=== PATIENT | male | born 1995 | race Caucasian/White ===

== ENCOUNTER → 2020-11-27 06:47 | Outpatient (CLI) | payer OTHER, SELFPAY ==
[2020-04-19 09:18] VITALS: BMI 26.6
--- NOTE | 2020-11-27 06:53 | CT_ITS ---
STUDY: CT MAXILLOFACIAL SINUSES REASON FOR EXAM: Male, 25 years old. SINUSITIS NASAL POLYPS. Anosmia RADIATION DOSAGE (If Supplied By Facility): CTDIvol = ( 33.06 ) mGy, DLP = ( 850.38 ) mGycm TECHNIQUE: The patient was scanned in a multi detector CT scanner. High resolution axial imaging was performed without the administration of intravenous contrast material. Sagittal and coronal images were reconstructed. Individualized dose optimization techniques were used for this CT. COMPARISON: None. FINDINGS: FRONTAL SINUSES: Opacification of the frontal sinus. ETHMOIDAL SINUSES: Opacification of the ethmoid sinuses bilaterally worse on the right side. MAXILLARY SINUSES: There is opacification of the maxillary sinuses bilaterally. SPHENOIDAL SINUSES: Opacification of the sphenoid sinus. The maxillary infundibula are compromised due to the mucosal hypertrophy. Soft tissue density is seen within the nasal fossa bilaterally worse on the left side suggestive of polyposis. This extends into the nasopharynx posteriorly on the left. There is thinning of the bony septations within the ethmoid sinuses bilaterally. The visualized bilateral orbital contents are normal. CT/Sinus/Facial Bone IMPRESSION: Pansinusitis. Nasal polyposis is worse in the left nasal fossa. Electronically Signed: Yinka Larson MD at 9:32 EDT , Service support ,
== END ==
PROVIDERS: PCP Family Medicine; Referring Provider Otolaryngology; Visit Provider Otolaryngology
DX: J32.4 Chronic pansinusitis (principal); J33.9 Nasal polyp, unspecified
CPT/HCPCS: 70486

== ENCOUNTER 2021-01-27 08:30 | Day surgery (SDC) | payer OTHER, SELFPAY ==
[2020-04-19 09:18] VITALS: BMI 26.6
[2021-01-26 10:05] LABS: Anion Gap 7 (5-15); BUN 10 mg/dL (7-18); BUN/Creat Ratio 11.3 RATIO (10-20); Calcium,Total 8.9 mg/dL (8.5-10.1); Chloride 105 mmol/L (98-107); Creatinine, Serum 0.88 mg/dL (0.70-1.30); EST Glomerular Filtration Rate 110 mL/min (>60); Est Glom Filt Rate - Afr Amer 133 mL/min (>60); Glucose 65 mg/dL (74-106); Potassium 3.6 mmol/L (3.5-5.1); Sodium Level 140 mmol/L (136-145)
[2021-01-27 09:24] VITALS: BP 135/91; PULSE 65; RESP 16; TEMP 36.7; O2SAT 98; BMI 27.0
[2021-01-27] MEDS: Lactated Ringers 1,000 ML 100 ML IV (09:28)
--- NOTE | 2021-01-27 10:00 | NASAL_PTH ---
PATIENT: WALE GARVEY LOC: [facility] – [place] U#:[id number] AGE/SX: 25/M ROOM: RE01/27/[address]: Dr. Reji Mcknight MD : 1995 BED: DIS: 01/27/2021 SPEC #: [id number] RECD: 01/27/21 14:57 STATUS: KALEIGH REWilian #: [id number] PIO: 01/27/21 10:[address]: Reji Mcknight DEPT: SURGICAL PATHOLOGY RECD BY: Jyotsna Gaines ENTERED: 01/28/21 11:43 SP TYPE: NASAL SPEC OTHR DR: Dr. Nesha Ahn MD Tissues: A - Ethmoid sinus, NOS B - Ethmoid sinus, NOS Procedures: Decalcification bone/plaque Special Stain Group I Surgery Specimen Level III GMS Stain (control) HEADER OPERATION: Functional endoscopic sinus surgery, septoplasty PRE-OP DIAGNOSIS: Nasal congestion, acute recurrent pansinusitis, polyp of nasal cavity TISSUE SUBMITTED: A ? Left sinus contents, B ? Right sinus contents MICROSCOPIC DIAGNOSIS A. Left sinus contents, curettings: Polypoid fragments consistent with chronic sinusitis. Fibrinopurulent material. Fragments of bone with no pathologic change. Negative for fungal organisms. B. Right sinus contents, curettings: Polypoid fragments consistent with chronic sinusitis. Fibrinopurulent material. Fragments of bone with no pathologic change. Negative for fungal organisms. AM:shine 02/02/2021 COMMENT A & B. GMS stain with matched control was used in the evaluation of this case. MICROSCOPIC DESCRIPTION Slides are reviewed. GROSS DESCRIPTION A - Received in fixative is one container labeled with the patient's name and designated left sinus contents. The specimen consists of three variable sized polypoid pieces of corona soft tissue that in aggregate measure 4 x 3 x 2 cm. Also present in the container are multiple fragments of hemorrhagic soft tissue mixed with fragments of bone measuring in aggregate 7.5 x 3 x 0.3 cm. The polypoid pieces are serially sectioned. The entire specimen is submitted in six cassettes, 1-3 contains the polypoid fragment, 4-6 contains the hemorrhagic fragments mixed with mucoid tissue. Cassettes 4-6 are submitted after decalcification. B - Received in fixative is one container labeled with the patient's name and designated right sinus contents. The specimen consists of multiple irregular fragments of corona-pink polypoid tissue that in aggregate measure 4 x 4 x 2 cm. Also present in the container are multiple fragments of hemorrhagic soft tissue mixed with fragments of bone measuring in aggregate 4.5 x 5 x 1.5 cm. [place] tissue is submitted in six cassettes as follows: 1-4 ? polypoid tissue, 5 & 6 - hemorrhagic soft tissue mixed with fragments of bone. Polypoid tissue is submitted in entirety. Cassettes 5 & 6 are submitted after decalcification. / LIBIA:shine 01/28/21 TC:2 CPT: 52223 x2, 36946 x2, 84276 x2
--- NOTE | 2021-01-27 10:18 | PCM.DC ---
Discharge Instructions Diet Discharge Diet: No restrictions Activity Discharge Activity: Return to Normal Activity Dressing / Incision Call your doctor if your incision/area has: Sudden Increased Bleeding Additional Dressing/Incision Instructions:: sleep with head of bed elevated 30 degrees. saline to both nostrils 5 times daily. mupirocin ointment to both nostrils twice daily. Follow Up Care Please Follow Up With: Ryan Mcknight MD When: 1 week Test Results: Test results from this visit will be discussed in further detail at your follow-up appointment, if applicable. Discharge Plan Admission Attending Provider: Ryan Mcknight Primary Care Provider: Nesha Ahn Discharge Orders/Prescriptions Prescriptions: No Action albuterol sulfate 90 mcg/actuation HFA aerosol inhaler 2 puff INHALATION Q6H PRN (Reason: shortness of breath or wheezing) Qty: 6.7 RF: 0 prednisone 20 mg tablet 60 mg PO DAILY RF: 0 bxlsifiy-wplevfbzjci-oapeyzehn 500-500-30 mg Combo Pack 1 pkg PO BID RF: 0 Dulera 200-5 mcg/actuation HFA aerosol inhaler 2 puff inhalation BID RF: 0 Xhance 93 mcg/actuation Aerosol Breath Activated 1 spray INTRANASAL BID RF: 0 Disposition Discharge Orders: Discharge Patient (Routine); Ordered 01/27/21 Ordered By: Dr. Ryan Mcknight
--- NOTE | 2021-01-27 10:22 | PCM.OPRPT ---
Problems Associated Problem List Diagnoses (1) Chronic pansinusitis: (2) Polyp, nasal sinus: (3) Nasal septal deviation: (4) Nasal turbinate hypertrophy: Report of Operation Date of Procedure: 01/27/21 Pre-Operative Diagnosis: 1. chronic pansinusitis 2. sinonasal polyposis 3. deviated nasal septum 4. inferior turbinate hypertrophy, right and left Post-Operative Diagnosis: 1. chronic pansinusitis 2. sinonasal polyposis 3. deviated nasal septum 4. inferior turbinate hypertrophy, right and left Surgery/Procedure Performed:: 1. endoscopic maxillary antrostomy with removal of contents, right and left 2. endoscopic total ethmoidectomy with removal of contents, right and left 3. endoscopic sphenoidotomy with removal of contents, right and left 4. endoscopic frontal sinus exploration with removal of contents, right and left 5. septoplasty 6. submucous resection inferior turbinates 7. image guidance CT navigation Surgeon: Ryan Mcknight Type of Anesthesia: General Description of Procedure: On the day of the procedure, after appropriate informed consent was obtained, the patient was brought to the operating room and placed in a supine position on the operating room table. The patient was placed under general endotracheal anesthesia by the anesthesiologist. The endotracheal tube was secured. image guidance navigation was set up on the face and accuracy was confirmed. the nose was injected with lidocaine/epinephrine and decongested with oxymetazoline-soaked pledgets. a marginal incision was made with a #15 blade on the left side. a submucoperichondrial plane was developed on the patient's left side with a royer elevator. this was taken posteriorly to the bony/cartilaginous junction and inferiorly to the maxillary crest. after an L-strut was marked, a large leftward defection and bony spur were removed with a D-knife and elias pedersen. the head of the right and left turbinates were injected with lidocaine/epinephrine. the head of the left inferior turbinate was incised with a 15 blade, dissected submucosally with a royer elevator, reduced using suction electrocautery and outfractured using a boies elevator. the head of the right inferior turbinate was incised with a 15 blade, dissected submucosally with a royer elevator, reduced using suction electrocautery and outfractured using a boies elevator. the zero degree endoscope was used to evaluate the nasal cavity. the superior attachment of the right and left middle turbinate and uncinate processes were injected with lidocaine/epinephrine. the left nasal cavity was evaluated. the middle turbinate was medialized. extensive polyps were removed from the middle meatus, sphenoethmoidal recess and frontal recess. a maxillary antrostomy and uncinectomy were performed with a royer elevator and a jabari cut. the antrostomy was widened with a back-biter. purulent material was evacuated. the ethmoid bulla was entered bluntly with the suction. a total ethmoidectomy was performed with a curette and an upgoing blakesley. this was taken superiorly to the skull base and laterally to the lamina. a stankewicz maneuver was performed and no laminar defect was noted. the natural sphenoid os was widened with the microdebrider and contents were evacuated. fungus was removed from the sphenoethmoidal recess. the frontal recess was explored and contents were evacuated. hemostasis was achieved with suction cautery; travis was placed. the right nasal cavity was evaluated. the middle turbinate was medialized. extensive polyps were removed from the middle meatus, sphenoethmoidal recess and frontal recess. a maxillary antrostomy and uncinectomy were performed with a royer elevator and a jabari cut. the antrostomy was widened with a back-biter. purulent material was evacuated. the ethmoid bulla was entered bluntly with the suction. a total ethmoidectomy was performed with a curette and an upgoing blakesley. this was taken superiorly to the skull base and laterally to the lamina. a stankewicz maneuver was performed and no laminar defect was noted. the natural sphenoid os was widened with the microdebrider and contents were evacuated. fungus was removed from the sphenoethmoidal recess. the frontal recess was explored and contents were evacuated. hemostasis was achieved with suction cautery; travis was placed. patton splints were sutured into place. a nasogastric tube was inserted orally and contents were evacuated. the table was rotated 90 degrees toward the anesthesiologist and was subsequently extubated uneventfully. he was transferred to the PACU in stable condition.
[2021-01-27] MEDS: Lidocaine 1% /Epi 1:100 (20ml) 20 ML Vial (10:52)
[2021-01-27] MEDS: Oxymetazoline 0.05% 1 SPRAY SPRAY.BTL 15 SPRAY (10:52)
[2021-01-27] MEDS: Mupirocin Ointment 22gm Tube 1 APPLIC (12:02)
[2021-01-27 13:09] VITALS: BP 135/91; BP 146/92; PULSE 79; RESP 18; TEMP 36.2; O2SAT 96
[2021-01-27 13:15] VITALS: BP 135/91; BP 154/92; PULSE 73; RESP 18; O2SAT 98
[2021-01-27 13:30] VITALS: BP 135/91; BP 147/86; PULSE 70; RESP 16; O2SAT 98
[2021-01-27 13:43] VITALS: BP 135/91; BP 144/86; PULSE 69; RESP 18; TEMP 36.2; O2SAT 97
[2021-01-27] MEDS: HYDROcodone Bitartrate/Apap 5/325 Tablet PO (14:04)
[2021-01-27 15:17] VITALS: BP 135/91; BP 145/83; PULSE 66; RESP 16; TEMP 37; O2SAT 100
== END 2021-01-27 15:25 | disposition home or self-care (01) ==
LOC: SDC 08:31 → AC 08:32
PROVIDERS: Anesthesiology; PCP Family Medicine; Referring Provider Otolaryngology; Visit Provider Otolaryngology
PROC: (CPT 30140; principal; 2021-01-27 09:30)
DX: J01.41 Acute recurrent pansinusitis (principal); J32.4 Chronic pansinusitis; J33.8 Other polyp of sinus; J34.2 Deviated nasal septum; J34.3 Hypertrophy of nasal turbinates; Z20.822 Contact with and (suspected) exposure to COVID-19
CPT/HCPCS: 00160; 30140; 30520; 31259; 31267; 31276; 61782; 36415; 80048; 87426; 88304; 88305; 88311; 88312; C9803; J7120; J2405

== ENCOUNTER → 2021-09-10 | Outpatient (CLI) | payer OTHER, SELFPAY ==
--- NOTE | 2021-09-10 07:55 | CT_ITS ---
STUDY: CT MAXILLOFACIAL SINUSES REASON FOR EXAM: Male, 26 years old. Sinusitis, polyp OF NASAL CAVITY RADIATION DOSAGE (If Supplied By Facility): CTDIvol = ( 33.06 ) mGy, DLP = ( 804.92 ) mGycm TECHNIQUE: The patient was scanned in a multi detector CT scanner. High resolution axial imaging was performed without the administration of intravenous contrast material. Sagittal and coronal images were reconstructed. Individualized dose optimization techniques were used for this CT. COMPARISON: Comparison is made with prior study dated 11/27/2020. FINDINGS: FRONTAL SINUSES: Diffuse opacification of the frontal sinuses. ETHMOIDAL SINUSES: Diffuse opacification of the ethmoid sinuses bilaterally with thickening of the bony septations. Mild degree of improvement. MAXILLARY SINUSES: Diffuse opacification of the maxillary sinuses bilaterally. SPHENOIDAL SINUSES: Almost complete opacification of the sphenoid sinuses. The ostiomeatal complexes are obliterated due to mucosal hypertrophy and soft tissue proliferation. Normal bilateral middle turbinates. Normal bilateral inferior turbinates. Normal midline nasal septum. The nasal cavities have improved aeration as compared to prior study. The visualized osseous structures are normal. The visualized bilateral orbital contents are normal. CT/Sinus/Facial Bone IMPRESSION: Pansinusitis. Mild degree of improved aeration of the ethmoid sinuses. Improved aeration of the nasal soft tissue swelling. Electronically Signed: Yinka Larson MD at 9:44 EDT ,
== END | disposition home or self-care (01) ==
LOC: CT 07:54
PROVIDERS: PCP Family Medicine; Referring Provider Otolaryngology; Visit Provider Otolaryngology
DX: J32.9 Chronic sinusitis, unspecified (principal); J33.0 Polyp of nasal cavity
CPT/HCPCS: 70486

== ENCOUNTER 2021-09-22 13:02 | Day surgery (SDC) | payer OTHER, SELFPAY ==
[2021-09-22 13:51] VITALS: BP 142/83; PULSE 58; RESP 16; TEMP 36.9; O2SAT 100; BMI 27.5
[2021-09-22] MEDS: Lactated Ringers 1,000 ML 15 ML IV (13:56)
--- NOTE | 2021-09-22 14:20 | PCM.DC ---
Discharge Instructions Diet Discharge Diet: No restrictions Activity Discharge Activity: Return to Normal Activity Dressing / Incision Call your doctor if your incision/area has: Sudden Increased Bleeding Additional Dressing/Incision Instructions:: irrigate nose 4-5 times daily Follow Up Care Please Follow Up With: Ryan Mcknight MD When: 1 week Test Results: Test results from this visit will be discussed in further detail at your follow-up appointment, if applicable. Discharge Plan Admission Attending Provider: Ryan Mcknight Primary Care Provider: Nesha Ahn Discharge Orders/Prescriptions Prescriptions: No Action albuterol sulfate 90 mcg/actuation HFA aerosol inhaler 2 puff INHALATION Q6H PRN (Reason: shortness of breath or wheezing) Qty: 6.7 RF: 0 Xhance 93 mcg/actuation Aerosol Breath Activated 1 spray INTRANASAL BID RF: 0 montelukast [Singulair] 10 mg Tablet 10 mg PO DAILY RF: 0 Trelegy Ellipta 100-62.5-25 mcg Blister With Device 1 inh INHALATION DAILY RF: 0 Disposition Discharge Orders: Discharge Patient (Routine); Ordered 09/22/21 Ordered By: Dr. Ryan Mcknight
--- NOTE | 2021-09-22 14:22 | PCM.OPRPT ---
Problems Associated Problem List Diagnoses (1) Chronic pansinusitis: (2) Polyp, nasal sinus: Report of Operation Date of Procedure: 09/22/21 Pre-Operative Diagnosis: 1. chronic pansinusitis 2. sinonasal polyposis Post-Operative Diagnosis: 1. chronic pansinusitis 2. sinonasal polyposis Surgery/Procedure Performed:: 1. endoscopic maxillary antrostomy with removal of contents, right and left 2. endoscopic total ethmoidecotmy, right and left 3. endoscopic sphenoidotomy with removal of contents, right and left 4. endoscopic frontal sinus exploration removal of contents, right and left 5. removal extensive sinonasal polyps 6. CT image navigation Surgeon: Ryan Mcknight Type of Anesthesia: General Description of Procedure: On the day of the procedure, after appropriate informed consent was obtained, the patient was brought to the operating room and placed in a supine position on the operating room table. The patient was placed under general endotracheal anesthesia by the anesthesiologist. The endotracheal tube was secured. image guidance navigation was set up on the face and accuracy was confirmed. the nose was injected with lidocaine/epinephrine and decongested with oxymetazoline-soaked pledgets. the left nasal cavity was evaluatedwith the zero degree endoscope. the middle turbinate was medialized. extensive polyps were removed from the middle meatus / ethmoid chamber. a revision maxillary antrostomy and uncinectomy were performed with a royer elevator and a jabari cut. the antrostomy was widened with a back-biter. purulent material and polyps were evacuated. a revision ethmoidectomy was performed with a curette and an upgoing blakesley. polyps were removed from this area with the microdebrider. this was taken superiorly to the skull base and laterally to the lamina. a stankewicz maneuver was performed and no laminar defect was noted. the natural sphenoid os was widened with the microdebrider and contents were evacuated. fungus was removed from the sphenoethmoidal recess, however some firm ethmoid bone was left intact as it was attached to the skull base. the frontal recess was explored with a seeker and the microdebrider and polyps were evacuated. the natural sphenoid os was widened and a revision sphenoidotomy was performed with the microdebrider. polyps were removed from the sphenoid sinus. hemostasis was achieved with suction cautery; travis was placed. the left nasal cavity was evaluated with the zero degree endoscope. the middle turbinate was medialized. extensive polyps were removed from the middle meatus / ethmoid chamber. a revision maxillary antrostomy and uncinectomy were performed with a royer elevator and a jabari cut. the antrostomy was widened with a back-biter. purulent material and polyps were evacuated. a revision ethmoidectomy was performed with a curette and an upgoing blakesley. polyps were removed from this area with the microdebrider. this was taken superiorly to the skull base and laterally to the lamina. a stankewicz maneuver was performed and no laminar defect was noted. the natural sphenoid os was widened with the microdebrider and contents were evacuated. fungus was removed from the sphenoethmoidal recess, however some firm ethmoid bone was left intact as it was attached to the skull base. the frontal recess was explored with a seeker and the microdebrider and polyps were evacuated. the natural sphenoid os was widened and a revision sphenoidotomy was performed with the microdebrider. polyps were removed from the sphenoid sinus. hemostasis was achieved with suction cautery; travis was placed. a nasogastric tube was inserted orally and contents were evacuated. the table was rotated 90 degrees toward the anesthesiologist and was subsequently extubated uneventfully. he was transferred to the PACU in stable condition.
--- NOTE | 2021-09-22 14:30 | TUR_PTH ---
PATIENT: WALE GARVEY LOC: [facility] – [place], [place] U#:[id number] AGE/SX: 26/M ROOM: RE09/22/[address]: Dr. Reji Mcknight MD : 1995 BED: DIS: 09/22/2021 SPEC #: [id number] RECD: 09/23/21 08:10 STATUS: KALEIGH REWilian #: [id number] PIO: 09/22/21 14:[address]: Reji Mcknight DEPT: SURGICAL PATHOLOGY RECD BY: Gopi Chaudhary ENTERED: 09/23/21 10:00 SP TYPE: TURBINATES OTHR DR: Dr. Nesha Ahn MD Tissues: A - Nasal turbinate, NOS B - Nasal turbinate, NOS Procedures: Decalcification bone/plaque Special Stain Group I Surgery Specimen Level III GMS Stain (control) HEADER OPERATION: Revision functional endoscopic sinus surgery, Navigation PRE-OP DIAGNOSIS: Chronic pansinusitis, sinonasal polyposis TISSUE SUBMITTED: A ? Right nasal contents, B ? Left nasal contents MICROSCOPIC DIAGNOSIS A. Right nasal contents, curettings: Polypoid fragments of respiratory mucosa and submucosal acute and chronic inflammation. See comment. B. Left nasal contents, curettings: Polypoid fragments of respiratory and submucosal tissue with chronic inflammation. Bone with focal reparative and reactive changes. AM:shine 09/28/2021 COMMENT A. GMS stain with matched control was used in the evaluation of this case and is negative for fungal organisms. MICROSCOPIC DESCRIPTION Slides are reviewed. GROSS DESCRIPTION A - Received in fixative is one container labeled with the patient's name and designated right nasal contents. The specimen consists of multiple irregular fragments of corona soft tissue mixed with possible fragments of bone that in aggregate measure 1 x 0.5 x 0.1 cm. The specimen is totally submitted in one cassette after decalcification. B - Received in fixative is one container labeled with the patient's name and designated left nasal contents. The specimen consists of multiple irregular fragments of corona soft tissue mixed with fragments of bone that in aggregate measure 2 x 1.5 x 0.2 cm. The specimen is totally submitted in one cassette after decalcification. / LIBIA:shine 09/23/2021 TC:2 CPT: 75541 x2, 10034 x2, 85074
[2021-09-22] MEDS: Clindamycin 900 MG/50 ML BAG 75 MG IV (14:53)
[2021-09-22] MEDS: Lidocaine 1% /Epi 1:100 (20ml) 20 ML Vial (14:58)
[2021-09-22] MEDS: Oxymetazoline 0.05% 1 SPRAY SPRAY.BTL 15 SPRAY (15:00)
[2021-09-22 16:06] VITALS: BP 142/83; BP 152/96; PULSE 82; RESP 16; TEMP 37; O2SAT 97
[2021-09-22 16:15] VITALS: BP 142/83; BP 148/95; PULSE 70; RESP 16; O2SAT 99
[2021-09-22 16:30] VITALS: BP 142/83; BP 142/88; PULSE 66; RESP 16; O2SAT 99
[2021-09-22 16:47] VITALS: BP 142/83; BP 146/98; PULSE 63; RESP 16; TEMP 36.6; O2SAT 97
[2021-09-22 16:55] VITALS: BP 142/83; BP 148/92; PULSE 58; RESP 16; TEMP 36.6; O2SAT 98
== END 2021-09-22 17:16 | disposition home or self-care (01) ==
LOC: SDC 13:03 → AC 13:11
PROVIDERS: PCP Family Medicine; Referring Provider Otolaryngology; Visit Provider Otolaryngology
PROC: (CPT 31267; principal; 2021-09-22 14:00)
DX: J32.4 Chronic pansinusitis (principal); J33.0 Polyp of nasal cavity; Z20.822 Contact with and (suspected) exposure to COVID-19; J45.909 Unspecified asthma, uncomplicated
CPT/HCPCS: 31267; 31288; 31276; 87426; 88304; 88311; 88312; J7120; J2405

== ENCOUNTER → 2022-02-18 | Outpatient (CLI) | payer OTHER, SELFPAY | END | disposition home or self-care (01) | LOC: LABSPEC 15:19 | PROVIDERS: PCP Family Medicine; Visit Provider Otolaryngology | DX: J32.9 Chronic sinusitis, unspecified (principal) | CPT/HCPCS: 87070; 87186; 87205 ==

== ENCOUNTER → 2022-05-20 | Outpatient (CLI) | payer OTHER, SELFPAY | END | disposition home or self-care (01) | LOC: LABSPEC 15:22 | PROVIDERS: PCP Family Medicine; Visit Provider Otolaryngology | DX: J32.9 Chronic sinusitis, unspecified (principal) | CPT/HCPCS: 87070; 87205 ==